=== PATIENT | male | born 1975 | race Caucasian/White ===

== ENCOUNTER 2016-11-06 21:10 | Emergency (ER) | payer MEDICAID ==
[~2016-11-06] VITALS: Ht 157.5 cm; Wt 70.0 kg
[~2016-11-06 21:10] MED LIST: OSEL75 PO; Z.0.NO CURRENT MEDS
[2016-11-06 21:12] VITALS: BP 102/60; PULSE 70; RESP 14; TEMP 98; O2SAT 98
[2016-11-06] MEDS ORDERED: SODIUM CHLOR 0.9% 1000 ML INJ 1,000 ML IV ONE (21:34)
--- NOTE | 2016-11-06 21:40 | PD ---
HPI Chief Complaint: Syncope/Near-Syncope Time Seen by Provider: 21:39 Travel History International Travel<30 days: No Contact w/Intl Traveler<30days: No Traveled to known affect area: No History of Present Illness HPI Patient is a 41-year-old male with no reported medical history presenting after a seizure. States approximately 45 minutes prior to exam EMS his at a bar for date night and was on his second beer when he felt "hot". He states he got up and walked a few feet and does not remember anything further. He does not remember feeling faint or dizzy and had taken several steps before losing consciousness. His girlfriend states that he had tonic-clonic movements of all 4 extremities for approximately 30-60 seconds and when he regained consciousness he seemed disoriented. The patient does not recall any of this. Denies history of seizure disorder. He states that earlier today his left ear has been clicking and popping and slightly painful without otorrhea. Equivocal tinnitus. He has had some intermittent nausea since then without vomiting. This has resolved. He states he drinks a few beers once a week, no recent binges. He said some left posterior rib pain since the incident which is mild. No chest pain or shortness of breath or cough. He denies any recent diarrhea or reduced oral intake. He denies any headaches or dizziness. He denies vision disturbance. States that the right side of his scalp is somewhat tender but denies any bleeding. He denies neck pain. Denies weakness or paresthesias of his extremities, no bowel or bladder dysfunction. He denies abdominal pain. He denies any illicit drugs including IVDA. Endorses tobacco use. PFSH Past Medical History Diminished Hearing: No Musculoskeletal: Yes (LOW BACK PAIN) Immunizations Current: Yes Tetanus Vaccination: > 5 Years Social History Alcohol Use: Yes (WEEKENDS) Tobacco Use: Yes (1 PPD) Substance Use: No Allergies-Medications (Allergen,Severity, Reaction): Coded Allergies: No Known Allergies (Verified , 11/06/16) Reported Meds & Prescriptions Reported Meds & Active Scripts Active No Active Prescriptions or Reported Medications Review of Systems Except as stated in HPI: all other systems reviewed are Neg Physical Exam Narrative GENERAL: Well-developed and well-nourished adult male in no acute distress. SKIN: Warm and dry. Good turgor without tenting. HEAD: Normocephalic and atraumatic. Mild tenderness to palpation of the right parietal scalp, no hematoma or lacerations. Schulz and raccoon sign. EYES: PERRL bilaterally, 5mm. EOMI bilaterally. No injection or icterus present. No proptosis. Lids without edema or erythema. ENT: Bilateral ear canals are non-edematous/non-erythematous without otorrhea. Left TM is slightly bulging with loss of cone of light, no erythema or signs of air-fluid level or perforation. Right TM has intact landmarks and without distortion, perforation, air-fluid level or erythema. Nasal mucosa slightly edematous and bluish without discharge, septum intact and midline. Buccal mucosa pink and moist. Oropharynx free of erythema, tonsillar hypertrophy, masses, swelling, asymmetry and exudates. Uvula midline and airway patent. NECK: Supple, no midline tenderness, crepitus or step-offs. Trachea midline, no JVD. No cervical or facial lymphadenopathy. CARDIOVASCULAR: Regular rate and rhythm without murmurs, rubs, clicks or gallops. Radial and posterior tibial pulses 2+ bilaterally. No pedal edema. RESPIRATORY: Clear to auscultation bilaterally with symmetrical rise and fall, no distress or use of accessory muscles. GASTROINTESTINAL: Non-tender, non-distended. Normal bowel sounds all 4 quadrants. No masses or organomegaly present. MUSCULOSKELETAL: Minimal pain with palpation of the left posterior ribs approximately 9-11 without crepitus, step-offs, edema or discoloration. No gait disturbances. Patient freely moving all four extremities spontaneously. Extremities without clubbing, cyanosis, or edema. No obvious deformities. NEUROLOGIC: CN II-XII grossly intact. Awake and alert and oriented 3. No ataxia with gait. Strength 5/5 bilateral shoulder flexion, shoulder extension, shoulder abduction, shoulder adduction, elbow flexion, elbow extension. Sensation intact and strength 5/5 over radial, median, and ulnar nerve distributions bilaterally.Sensation intact L2-S2 bilaterally. Strength 5/5 in hip flexion, hip extension, knee flexion, knee extension, plantar flexion, dorsiflexion bilaterally. Bilateral triceps, biceps, brachioradialis, patellar and Achilles DTRs 2+. Negative bilateral Travis sign. Downgoing Babinskis bilaterally. Normal speech. PSYCHIATRIC: Appropriate mood and affect; insight and judgment normal. Data Data Last Documented VS Vital Signs Date Time Temp Pulse Resp B/P Pulse Ox O2 Delivery O2 Flow Rate FiO2 11/06/16 22:26 17 98 Room Air 11/06/16 21:12 98.0 70 102/60 Orders Complete Blood Count With Diff (11/06/16 21:34) Alcohol (Ethanol) (11/06/16 21:34) Drug Screen, Random Urine (11/06/16 21:34) Electrocardiogram (11/06/16 ) Ct Brain W/O Iv Contrast(Rout) (11/06/16 ) Ecg Monitoring (11/06/16 21:34) Iv Access Insert/Monitor (11/06/16 21:34) Oximetry (11/06/16 21:34) Comprehensive Metabolic Panel (11/06/16 21:34) Sodium Chlor 0.9% 1000 Ml Inj (Ns 1000 M (11/06/16 21:34) Sodium Chloride 0.9% Flush (Ns Flush) (11/06/16 21:45) Urinalysis - C+S If Indicated (11/06/16 21:34) Ribs, Uni (W/Exp Cxr-Min 3vw) (11/06/16 ) Lipase (11/06/16 21:42) Orthostatic Vital Signs (11/06/16 21:50) Labs Laboratory Tests Test 11/06/16 11/06/16 21:40 22:20 White Blood Count 10.5 TH/MM3 Red Blood Count 4.46 MIL/MM3 Hemoglobin 13.3 GM/DL Hematocrit 39.6 % Mean Corpuscular Volume 88.7 FL Mean Corpuscular Hemoglobin 29.8 PG Mean Corpuscular Hemoglobin 33.6 % Concent Red Cell Distribution Width 14.3 % Platelet Count 216 TH/MM3 Mean Platelet Volume 8.0 FL Neutrophils (%) (Auto) 54.7 % Lymphocytes (%) (Auto) 33.5 % Monocytes (%) (Auto) 9.5 % Eosinophils (%) (Auto) 2.1 % Basophils (%) (Auto) 0.2 % Neutrophils # (Auto) 5.8 TH/MM3 Lymphocytes # (Auto) 3.5 TH/MM3 Monocytes # (Auto) 1.0 TH/MM3 Eosinophils # (Auto) 0.2 TH/MM3 Basophils # (Auto) 0.0 TH/MM3 CBC Comment DIFF FINAL Differential Comment Urine Opiates Screen NEG Urine Barbiturates Screen NEG Urine Amphetamines Screen NEG Urine Benzodiazepines Screen NEG Urine Cocaine Screen NEG Urine Cannabinoids Screen POS MDM Medical Decision Making Medical Screen Exam Complete: Yes Emergency Medical Condition: Yes Differential Diagnosis Seizure versus metabolic disturbance versus hypoglycemia versus orthostatic hypotension versus brain mass versus head injury versus syncope versus vasovagal syncope versus alcohol withdrawal versus toxic ingestion versus rib contusion Narrative Course Patient is a 41-year-old male who comes by private vehicle accompanied by his approximately 45 minutes after seizure-like activity. He has a history of seizures. He had met her at a bar and was on the second beer when he felt "hot ". He states he got up to walk outside and took a few steps and passed out. He did not have any feelings of presyncope or dizziness prior to this occurring. She states he had 30-60 seconds of sustained jerking motions of all 4 limbs and was confused for several minutes after regaining consciousness. He denies drinking daily, states he drinks a few beers usually once a week. No recent binges. No recent risk for dehydration. He denies any drug use. He states he is otherwise healthy and takes no medications daily. Vitals are normal and patient has no current complaints other than some minor posterior left rib discomfort and right scalp discomfort. Blood glucose level reported by patient performed by EMS was 96, he should declined transport. No signs of pneumothorax or heart signs of fracture. Patient was given 1 L normal saline and ordered workup including CT head, EKG, rib/chest x-ray and labs including urine drug screen. EKG, chest x-ray, CT head and CBC unremarkable. Patient was signed out to Dr. Rebolledo for disposition pending metabolic panel, urine and tox screen. Diagnosis Primary Impression: Seizure Scripts No Active Prescriptions or Reported Meds Condition: Bob Short III Nov 06, 2016 21:39
[2016-11-06] MEDS ORDERED: SODIUM CHLORIDE 0.9% FLUSH 5 ML FLUSH IVF PRN (21:45)
[2016-11-06 22:21] LABS: AUTOMATED NEUTROPHIL # 5.8 TH/MM3 (1.8-7.7); BASOPHIL % 0.2 % (0.0-2.0); EOSINOPHIL # 0.2 TH/MM3 (0-0.4); EOSINOPHIL % 2.1 % (0.0-4.0); HEMATOCRIT 39.6 % (39.0-51.0); HEMO FLAGS DIFF FINAL; LYMPH % 33.5 % (9.0-44.0); LYMPHOCYTE # 3.5 TH/MM3 (1.0-4.8); MEAN CELL VOLUME 88.7 FL (80.0-100.0); MEAN CORPUSCULAR HEMOGLOBIN 29.8 PG (27.0-34.0); MEAN CORPUSCULAR HGB CONC 33.6 % (32.0-36.0); MONO % 9.5 % (0.0-8.0); NEUT % 54.7 % (16.0-70.0); PLATELET COUNT 216 TH/MM3 (150-450); RED BLOOD COUNT 4.46 MIL/MM3 (4.50-5.90); RED CELL DISTRIBUTION WIDTH 14.3 % (11.6-17.2); WHITE BLOOD COUNT 10.5 TH/MM3 (4.0-11.0)
--- NOTE | 2016-11-06 22:21 | RADRPT ---
EXAM DATE/TIME: 11/06/2016 21:47 [facility] COMPARISON: No previous studies available for comparison. INDICATIONS : Left lower posterior rib pain. Patient had a syncopal episode today. MEDICAL HISTORY : None. SURGICAL HISTORY : None. ENCOUNTER: Initial ACUITY: 1 day PAIN SCORE: 5/10 LOCATION: Left lower rib pain. FINDINGS: Multiple views of the left ribs were performed. There is no evidence of displaced fracture. No dest ructive lesions or areas of periosteal thickening are seen. Expiratory view of the chest is negative for pneumothorax. The mediastinal structures are midline. CONCLUSION: Normal examination for a patient of this age. Anthony Hardwick MD on November 06, 2016 at 22:17 Board Certified Radiologist. This report was verified electronically.
[2016-11-06 22:26] VITALS: RESP 17; O2SAT 98
--- NOTE | 2016-11-06 22:32 | RADRPT ---
EXAM DATE/TIME: 11/06/2016 22:02 [facility] COMPARISON: No previous studies available for comparison. INDICATIONS : Syncope. RADIATION DOSE: 35.47 CTDIvol (mGy) MEDICAL HISTORY : None SURGICAL HISTORY : None. ENCOUNTER: Initial ACUITY: 1 day PAIN SCALE: 4/10 LOCATION: cranial TECHNIQUE: Multiple contiguous axial images were obtained of the head. Using automated exposure control and adj ustment of the mA and/or kV according to patient size, radiation dose was kept as low as reasonably a chievable to obtain optimal diagnostic quality images. FINDINGS: CEREBRUM: The ventricles are normal for age. No evidence of midline shift, mass lesion, hemorrhage or acute in farction. No extra-axial fluid collections are seen. POSTERIOR FOSSA: The cerebellum and brainstem are intact. The 4th ventricle is midline. The cerebellopontine angle i s unremarkable. EXTRACRANIAL: The visualized portion of the orbits is intact. SKULL: The calvaria is intact. No evidence of skull fracture. CONCLUSION: Normal examination for a patient of this age. Anthony Hardwick MD on November 06, 2016 at 22:29 Board Certified Radiologist. This report was verified electronically.
[2016-11-06 22:53] LABS: BLOOD, URINE NEG (NEG); COMMENT (UR) CULT NOT INDICATED; CULTURE IF INDICATED CULT NOT INDICATED; GLUCOSE,URINE NEG (NEG); KETONE, URINE NEG (NEG); MUCUS URINE FEW /lpf (OCC); NITRITE,URINE NEG (NEG); URINE COLOR YELLOW (YELLW/STRAW)
[2016-11-06 22:56] LABS: AMPHETAMINE, URINE NEG (NEG); BARBITURATES, URINE NEG (NEG); COCAINE, URINE NEG (NEG)
[2016-11-06 22:59] LABS: ANION GAP 11 MEQ/L (5-15)
[2016-11-06 23:02] LABS: ALKALINE PHOSPHATASE 61 U/L (45-117); ALT (GPT) 28 U/L (12-78); AST (GOT) 27 U/L (15-37); BICARBONATE 24.4 MEQ/L (21.0-32.0); BLOOD UREA NITROGEN 18 MG/DL (7-18); CHLORIDE 103 MEQ/L (98-107); GLOMERULAR FILTRATION RATE 75 ML/MIN (>89); POTASSIUM 3.6 MEQ/L (3.5-5.1); SODIUM (NA) 138 MEQ/L (136-145); TOTAL BILIRUBIN ADULT 0.3 MG/DL (0.2-1.0)
--- NOTE | 2016-11-06 23:14 | PD ---
Data Data Last Documented VS Vital Signs Date Time Temp Pulse Resp B/P Pulse Ox O2 Delivery O2 Flow Rate FiO2 11/07/16 00:28 68 18 101/58 98 11/06/16 22:26 Room Air 11/06/16 21:12 98.0 Orders Complete Blood Count With Diff (11/06/16 21:34) Alcohol (Ethanol) (11/06/16 21:34) Drug Screen, Random Urine (11/06/16 21:34) Electrocardiogram (11/06/16 ) Ct Brain W/O Iv Contrast(Rout) (11/06/16 ) Ecg Monitoring (11/06/16 21:34) Iv Access Insert/Monitor (11/06/16 21:34) Oximetry (11/06/16 21:34) Comprehensive Metabolic Panel (11/06/16 21:34) Sodium Chlor 0.9% 1000 Ml Inj (Ns 1000 M (11/06/16 21:34) Sodium Chloride 0.9% Flush (Ns Flush) (11/06/16 21:45) Urinalysis - C+S If Indicated (11/06/16 21:34) Ribs, Uni (W/Exp Cxr-Min 3vw) (11/06/16 ) Lipase (11/06/16 21:42) Orthostatic Vital Signs (11/06/16 21:50) Labs Laboratory Tests Test 11/06/16 11/06/16 21:40 22:20 White Blood Count 10.5 TH/MM3 Red Blood Count 4.46 MIL/MM3 Hemoglobin 13.3 GM/DL Hematocrit 39.6 % Mean Corpuscular Volume 88.7 FL Mean Corpuscular Hemoglobin 29.8 PG Mean Corpuscular Hemoglobin 33.6 % Concent Red Cell Distribution Width 14.3 % Platelet Count 216 TH/MM3 Mean Platelet Volume 8.0 FL Neutrophils (%) (Auto) 54.7 % Lymphocytes (%) (Auto) 33.5 % Monocytes (%) (Auto) 9.5 % Eosinophils (%) (Auto) 2.1 % Basophils (%) (Auto) 0.2 % Neutrophils # (Auto) 5.8 TH/MM3 Lymphocytes # (Auto) 3.5 TH/MM3 Monocytes # (Auto) 1.0 TH/MM3 Eosinophils # (Auto) 0.2 TH/MM3 Basophils # (Auto) 0.0 TH/MM3 CBC Comment DIFF FINAL Differential Comment Sodium Level 138 MEQ/L Potassium Level 3.6 MEQ/L Chloride Level 103 MEQ/L Carbon Dioxide Level 24.4 MEQ/L Anion Gap 11 MEQ/L Blood Urea Nitrogen 18 MG/DL Creatinine 1.10 MG/DL Estimat Glomerular Filtration 75 ML/MIN Rate Random Glucose 120 MG/DL Calcium Level 8.6 MG/DL Total Bilirubin 0.3 MG/DL Aspartate Amino Transf 27 U/L (AST/SGOT) Alanine Aminotransferase 28 U/L (ALT/SGPT) Alkaline Phosphatase 61 U/L Total Protein 6.8 GM/DL Albumin 3.9 GM/DL Ethyl Alcohol Level 6 MG/DL Lipase 102 U/L Urine Color YELLOW Urine Turbidity CLEAR Urine pH 6.0 Urine Specific [place] 1.021 Urine Protein NEG mg/dL Urine Glucose (UA) NEG mg/dL Urine Ketones NEG mg/dL Urine Occult Blood NEG Urine Nitrite NEG Urine Bilirubin NEG Urine Urobilinogen LESS THAN 2.0 MG/DL Urine Leukocyte Esterase NEG Urine RBC 1 /hpf Urine WBC 1 /hpf Urine Mucus FEW /lpf Microscopic Urinalysis Comment CULT NOT INDICATED Urine Opiates Screen NEG Urine Barbiturates Screen NEG Urine Amphetamines Screen NEG Urine Benzodiazepines Screen NEG Urine Cocaine Screen NEG Urine Cannabinoids Screen POS MDM Medical Record Reviewed: Yes Supervised Visit with ASHIA: No Narrative Course CBC & BMP Diagram 11/06/16 21:40 LFTs normal Lipase normal U tox + cannanbionoids Etoh 6 Diagnosis Primary Impression: Seizure Referrals: Jayjay Britt PhD MD 2 days Additional Instruction: You have a choice when it comes to health care, and we are glad that you chose [email or web address]. Hopefully, we have met your expectations on today's visit. You are welcome to return to [email or web address] at any time, as we are committed to meeting the health care needs of our community. Med/Other Pt SpecificInfo: No Change to Meds Scripts No Active Prescriptions or Reported Meds Disposition: 01 DISCHARGE HOME Condition: Stable Tad Rebolledo MD Nov 06, 2016 23:14
[2016-11-07 00:28] VITALS: BP 101/58
--- NOTE | 2016-11-07 14:27 | EKG ---
Date Performed: 11/06/2016 Time Performed: 22:20:47 PTAGE: 41 years EKG: Sinus rhythm NORMAL ECG NO PREVIOUS TRACING DOCTOR: Varun Ojeda Interpretating Date/Time 11/07/2016 14:49:31
== END 2016-11-07 00:32 | disposition home or self-care (01) ==
LOC: NEPE 21:10
DX: R56.9 Unspecified convulsions (principal); F17.210 Nicotine dependence, cigarettes, uncomplicated; F12.10 Cannabis abuse, uncomplicated
CPT/HCPCS: 70450; 71101; 80053; 80307; 80320; 81001; 83690; 85025; 93005; 99285; J7030